=== PATIENT | female | born 1975 | race Caucasian/White ===

== ENCOUNTER 2017-05-18 17:39 | Emergency (ER) | payer OTHER ==
[2017-05-18 17:47] VITALS: BP 111/80; PULSE 75; RESP 20; TEMP 98; O2SAT 97
--- NOTE | 2017-05-18 17:54 | C.PDOC ---
History Of Present Illness 42yo female, presents to ED for evaluation of eye irritation, present since earlier today. Patient states she probably had an eyelash in her eye, causing the irritation and redness. She reports presenting to the ED because she was instructed from her work place to get "checked out" for pink eye. Pt denies any fever, discharge from her eye and states the irritation is not present. She has no other medical complaints. Time Seen by Provider: 05/18/17 17:51 Chief Complaint (Nursing): Eye Problem History Per: Patient History/Exam Limitations: no limitations Onset/Duration Of Symptoms: Hrs Current Symptoms Are (Timing): Gone Injury To Eye?: No Associated Symptoms: denies: FB Sensation, Itching, Discharge From Eye Recent travel outside of the [place]: No Past Medical History Reviewed: Historical Data, Nursing Documentation, Vital Signs Vital Signs: Last Vital Signs Temp 98 F 05/18/17 17:43 Pulse 75 05/18/17 17:43 Resp 20 05/18/17 17:43 BP 111/80 05/18/17 17:43 Pulse Ox 97 05/18/17 18:04 - Medical History PMH: No Chronic Diseases Surgical History: No Surg Hx Family History: States: No Known Family Hx - Social History Hx Alcohol Use: Yes Hx Substance Use: No - Immunization History Hx Tetanus Toxoid Vaccination: No Hx Influenza Vaccination: Yes (03/2017) Hx Pneumococcal Vaccination: No Review Of Systems Eyes: Positive for: Redness (now resolved). Negative for: Pain, Vision Change Physical Exam - Physical Exam Appears: Well, Non-toxic, No Acute Distress Skin: Normal Color Eye(s): bilateral: Normal Inspection, PERRL, EOMI Neurological/Psych: Oriented x3 ED Course And Treatment O2 Sat by Pulse Oximetry: 97 (RA) Pulse Ox Interpretation: Normal Disposition - Disposition Disposition: HOME/ ROUTINE Disposition Time: 18:00 Forms: [facility] (Turkish), Work Excuse - Clinical Impression Clinical Impression: Normal exam - Scribe Statement The provider has reviewed the documentation as recorded by the Noe Mccoy Provider Attestation: All medical record entries made by the Scribe were at my direction and personally dictated by me. I have reviewed the chart and agree that the record accurately reflects my personal performance of the history, physical exam, medical decision making, and the department course for this patient. I have also personally directed, reviewed, and agree with the discharge instructions and disposition.
== END 2017-05-18 18:00 | disposition home or self-care (01) ==
LOC: C.ER 17:39
DX: Z00.8 Encounter for other general examination (principal)

== ENCOUNTER 2017-08-10 20:23 | Emergency (ER) | payer OTHER ==
[2017-08-10 21:08] VITALS: BP 132/82; PULSE 68; RESP 20; TEMP 98.2; O2SAT 100
--- NOTE | 2017-08-10 21:27 | C.PDOC ---
History Of Present Illness 42-year-old female, presents to the emergency department with complaints of an eyelash in her eye 4 days ago. Patient described it as "little eyelash hair stuck in eye". The irritation has since ended, but she needs a medical clearance for work. Patient denies the use of contact lenses. Time Seen by Provider: 08/10/17 21:17 Chief Complaint (Nursing): Eye Problem History Per: Patient History/Exam Limitations: no limitations Onset/Duration Of Symptoms: Days (4) Current Symptoms Are (Timing): Gone Injury To Eye?: No Quality: Other (irritation) Wears Contact Lens?: No Past Medical History Reviewed: Historical Data, Nursing Documentation, Vital Signs Vital Signs: Last Vital Signs Temp 98.2 F 08/10/17 21:04 Pulse 68 08/10/17 21:04 Resp 20 08/10/17 21:04 BP 132/82 08/10/17 21:04 Pulse Ox 100 08/10/17 21:56 - Medical History PMH: No Chronic Diseases Surgical History: No Surg Hx Family History: States: No Known Family Hx - Social History Hx Alcohol Use: Yes Hx Substance Use: No - Immunization History Hx Tetanus Toxoid Vaccination: No Hx Influenza Vaccination: Yes (03/2017) Hx Pneumococcal Vaccination: No Review Of Systems Eyes: Positive for: Other (irritation) Physical Exam - Physical Exam Appears: Well, No Acute Distress Skin: Normal Color, Warm, Dry, No Rash Head: Normacephalic Eye(s): bilateral: Normal Inspection ((-)redness (-)inflammation (-)infection), PERRL, EOMI Oral Mucosa: Moist Extremity: Normal ROM Neurological/Psych: Oriented x3, Normal Speech, Normal Motor, Normal Sensation Gait: Steady ED Course And Treatment ECG: Interpreted By Me, Viewed By Me O2 Sat by Pulse Oximetry: 100 (RA) Pulse Ox Interpretation: Normal Progress Note: Patient is to be discharged with a note saying that she is medically capable of returning to work. Disposition - Disposition Referrals: [facility] [Outside] Disposition: HOME/ ROUTINE Disposition Time: 21:26 Condition: GOOD Additional Instructions: Follow up with the medical doctor with 1-2 days. return if worsened. Instructions: Conjunctivitis ([place]) Forms: [facility] (Malay), School Excuse, Work Excuse - Clinical Impression Clinical Impression: Normal exam - PA / CLINICAL QUALITY MANAGER / Resident Statement MD/DO has reviewed & agrees with the documentation as recorded. - Scribe Statement The provider has reviewed the documentation as recorded by the Scribe (Yandel Ramirez) All medical record entries made by the Scribe were at my direction and personally dictated by me. I have reviewed the chart and agree that the record accurately reflects my personal performance of the history, physical exam, medical decision making, and the department course for this patient. I have also personally directed, reviewed, and agree with the discharge instructions and disposition.
== END 2017-08-10 21:33 | disposition home or self-care (01) ==
LOC: C.ER 20:23
DX: Z00.00 Encounter for general adult medical examination without abnormal findings (principal)